=== PATIENT | male | born 1960 | race Caucasian/White ===

== ENCOUNTER 2022-08-17 17:25 | Outpatient (CLI) | payer BC, SELFPAY ==
[2022-08-17 13:59] LABS: Creatinine Urine 64.3 mg/dL
[2022-08-17 14:01] LABS: Microalbumin Creatinine Ratio 10 mg/g (0-30); Microalbumin Urine < 1 mg/dL
[2022-08-17 14:58] LABS: Albumin* 4.8 g/dL (3.3-5.0); Chloride* 101 mmol/L (96-114)
[2022-08-17 14:59] LABS: Potassium* 4.4 mmol/L (3.6-5.1); Sodium* 140 mmol/L (135-149)
[2022-08-17 15:01] LABS: Alkaline Phosphatase* 66 U/L (40-150); Aspartate Amino Transferase* 26 U/L (12-35); Blood Urea Nitrogen* 16 mg/dL (7-30); Carbon Dioxide* 33 mmol/L (20-32); Cholesterol* 145 mg/dL (90-199); Estimated Glomerular Filt Rate 85 ml/min; Glucose* 110 mg/dL (60-115); Total Protein* 7.5 g/dL (6.0-8.3)
[2022-08-17 15:02] LABS: Alanine Aminotransferase* 33 U/L (4-50); Calcium* 9.6 mg/dL (8.4-10.6); HDL Cholesterol* 58 mg/dL (>=40); LDL Cholesterol Calculated 65 mg/dL (<100); Triglycerides* 111 mg/dL (40-149)
[2022-08-17 15:32] LABS: PSA Screen* 0.57 ng/mL (0.10-4.00)
[2022-08-17 15:53] LABS: Hepatitis C Virus Antibody* Negative (Negative)
[2022-08-18 22:53] LABS: HIV Serologic Interpretation HIV Abs Neg; HIV-1 Antibody Negative (Negative); HIV-2 Antibody Negative (Negative)
[2022-08-20 06:22] LABS: HIV-1 Qnt NAAT copies/mL Not Detected log cpy/mL
== END 2022-08-17 17:26 | disposition home or self-care (01) ==
PROVIDERS: PCP Physician Assistant Medical; Visit Provider Physician Assistant Medical
DX: Z00.00 Encounter for general adult medical examination without abnormal findings (principal); E11.9 Type 2 diabetes mellitus without complications; E78.00 Pure hypercholesterolemia, unspecified; I10 Essential (primary) hypertension; Z11.3 Encounter for screening for infections with a predominantly sexual mode of transmission; Z12.5 Encounter for screening for malignant neoplasm of prostate; Z11.59 Encounter for screening for other viral diseases
CPT/HCPCS: 80053; 80061; 82043; 82570; 84153; 86701; 86702; 86803; 87536

== ENCOUNTER 2023-09-27 08:19 | Outpatient (CLI) | payer OTHER, SELFPAY | END 2023-09-27 08:20 | disposition home or self-care (01) | LOC: NFLDREF 09-28 06:09 | PROVIDERS: PCP Physician Assistant Medical; Referring Provider Physician Assistant Medical; Visit Provider Physician Assistant Medical | DX: E11.9 Type 2 diabetes mellitus without complications (principal); Z79.84 Long term (current) use of oral hypoglycemic drugs; Z12.5 Encounter for screening for malignant neoplasm of prostate; Z13.29 Encounter for screening for other suspected endocrine disorder; I10 Essential (primary) hypertension | CPT/HCPCS: 80053; 82043; 82570; 84443; G0103 ==

== ENCOUNTER 2024-03-13 11:42 | Outpatient (CLI) | payer OTHER, SELFPAY | END 2024-03-13 11:43 | disposition home or self-care (01) | LOC: NFLDREF 03-17 02:56 | PROVIDERS: PCP Physician Assistant Medical; Referring Provider Physician Assistant Medical; Visit Provider Physician Assistant Medical | DX: E11.9 Type 2 diabetes mellitus without complications (principal); I10 Essential (primary) hypertension; E78.00 Pure hypercholesterolemia, unspecified | CPT/HCPCS: 80061; 82607 ==

== ENCOUNTER 2024-05-02 10:17 | Outpatient (CLI) | payer OTHER, SELFPAY ==
--- NOTE | 2024-05-02 11:08 | W.ANESCHARGE ---
Anesthesia Charges Start Date/Time Anesthesia Start Date: 05/02/24 Anesthesia Start Time: 11:00 Stop Date/Time Anesthesia Stop Date: 05/02/24 Anesthesia Stop Time: 11:42
--- NOTE | 2024-05-02 11:43 | W.ANESCHARGE ---
Anesthesia Charges Start Date/Time Anesthesia Start Date: 05/02/24 Anesthesia Start Time: 11:00 Stop Date/Time Anesthesia Stop Date: 05/02/24 Anesthesia Stop Time: 11:42
== END 2024-05-02 10:18 | disposition home or self-care (01) ==
LOC: OP CLINIC 10:18
PROVIDERS: PCP Physician Assistant Medical; Visit Provider Surgery
DX: Z12.11 Encounter for screening for malignant neoplasm of colon (principal); D12.3 Benign neoplasm of transverse colon; D12.5 Benign neoplasm of sigmoid colon; K64.4 Residual hemorrhoidal skin tags; Z86.010 Personal history of colon polyps
CPT/HCPCS: 00811; 45385; 88305; J2704

== ENCOUNTER 2024-12-23 09:18 | Outpatient (CLI) | payer MEDICARE, SELFPAY | END 2024-12-23 09:19 | disposition home or self-care (01) | LOC: NFLDREF 12-24 23:25 | PROVIDERS: PCP Physician Assistant Medical; Referring Provider Physician Assistant Medical; Visit Provider Physician Assistant Medical | DX: I10 Essential (primary) hypertension (principal); E11.9 Type 2 diabetes mellitus without complications; R39.9 Unspecified symptoms and signs involving the genitourinary system; G47.30 Sleep apnea, unspecified; E78.00 Pure hypercholesterolemia, unspecified; Z12.5 Encounter for screening for malignant neoplasm of prostate | CPT/HCPCS: 80053; 80061; 82043; 82570; 82607; 87086; G0103 ==

== ENCOUNTER 2025-05-05 09:43 | Outpatient (CLI) | payer MEDICARE, SELFPAY | END 2025-05-05 09:44 | disposition home or self-care (01) | PROVIDERS: PCP Physician Assistant Medical; Visit Provider Physician Assistant Medical | DX: E11.9 Type 2 diabetes mellitus without complications (principal); G47.9 Sleep disorder, unspecified; Z68.35 Body mass index [BMI] 35.0-35.9, adult | CPT/HCPCS: 80076; 82306; 82728 ==

== ENCOUNTER 2025-06-12 10:47 | Outpatient (CLI) | payer MEDICARE, SELFPAY ==
--- NOTE | 2025-07-15 12:32 | W.PM.SLEEP ---
Sleep Study Details Details Interpreting Provider: Kate Date of Sleep Study: 06/12/25 Sleep Study Details: STUDY TYPE:? Home unattended ? BMI:? 35.44 ORDERING PROVIDER:Vaishnavi Patel INDICATION:? Concern for sleep apnea ? SLEEP SUMMARY:? 405 minutes monitored RESPIRATORY SUMMARY:? AHI 50.4 Low oxygen 70 37.5% of the study oxygen less than 90% Snoring 0% Central apnea index is 8 PERIODIC LIMB MOVEMENTS OF SLEEP:? Not recorded CARDIAC:? Range 63-112, mean 76.9 beats per minute IMPRESSION:? Severe obstructive sleep apnea with significant hypo oxygenation RECOMMENDATION: Weight loss is recommended. AutoSet CPAP would be reasonable but with very close monitoring. Alternatively an in-lab titration study is recommended.
== END 2025-06-12 10:48 | disposition home or self-care (01) ==
LOC: SLEEP 10:48
PROVIDERS: PCP Physician Assistant Medical; Visit Provider Physician Assistant Medical
DX: G47.33 Obstructive sleep apnea (adult) (pediatric) (principal)
CPT/HCPCS: 95806